=== PATIENT | female | born 1990 | race Hispanic/Latino ===

== ENCOUNTER 2023-10-11 21:19 | Emergency (ER) | payer OTHER, SELFPAY ==
[2023-10-11 21:23] VITALS: BP 124/60
[2023-10-11 21:42] LABS: % Basophils 0.4 % (0-2); % Eosinophils 0.4 % (0-6); % Immature Granulocytes 0.2 % (0-0.5); % Lymphocytes 19.7 % (20.5-51.1); % Monocytes 4.6 % (1.7-9.3); % Neutrophils 74.7 % (42.2-75.2); Absolute Lymphocytes 1.9 10^3/uL (1.2-3.4); Absolute Monocytes 0.4 10^3/uL (0.1-0.6); Absolute Neutrophils 7.1 10^3/uL (1.4-6.5); Hematocrit 38.3 % (37.0-47.0); Mean Corp Hgb Conc. 33.9 g/dL (33.0-37.0); Mean Corpuscular Hgb 28.6 pg (27.0-31.0); Mean Corpuscular Volume 84.4 fL (81.0-99.0); Mean Platelet Volume 9.2 fL (7.4-10.4); Nucleated Red Blood Cells % 0 %; Platelet Count 236 10^3/uL (130-400); Red Blood Cell Count 4.54 10^6/uL (4.20-5.40); White Blood Cell Count 9.5 10^3/uL (4.8-10.8)
[2023-10-11 21:44] LABS: Urine Albumin Trace (Neg - Trace); Urine Bilirubin 1+ (Negative); Urine Character Slightly Cloudy (Clear); Urine Color Yellow; Urine Glucose Negative (Negative); Urine Ketone 3+ (Negative); Urine Leukocyte 2+ (Negative); Urine Nitrite Negative (Negative); Urine Occult Blood 1+ (Negative); Urine Specific Gravity 1.025 (<1.030); Urine Urobilinogen 1+ (Neg - 1+)
[2023-10-11 21:53] LABS: HCG, Serum Qualitative Screen Negative
[2023-10-11 21:58] LABS: ALT (SGPT) 14 U/L (0-35); AST (SGOT) 19 U/L (14-36); Albumin 4.8 g/dl (3.5-5.0); Alkaline Phosphatase 67 U/L (38-126); Blood Urea Nitrogen 23 mg/dl (7-17); Calcium 9.3 mg/dl (8.4-10.2); Carbon Dioxide 28 mmol/L (22-30); Chloride 99 mmol/L (98-107); Glucose 117 mg/dl (70-99); Potassium 3.7 mmol/L (3.5-5.1); Sodium 137 mmol/L (135-145); Total Bilirubin 0.5 mg/dl (0.2-1.3); Total Protein 7.6 g/dl (6.3-8.2); eGFR > 60.00
[2023-10-11 22:02] LABS: Urine Squamous Cell >30 /LPF (Few)
[2023-10-11 22:03] LABS: Urine Bacteria Few (Negative); Urine Red Blood Cell 0-2 /HPF (0-2); Urine White Cell >100 /HPF (0-5)
[2023-10-11 23:57] VITALS: BP 124/63
--- NOTE | 2023-10-12 00:10 | ED.GENMED ---
History of Present Illness
<RAFAEL Ruiz - Last Filed: 10/12/23 05:13>
General
Chief Complaint: Abdominal Pain
Source: patient
Exam Limitations: none
Time Seen by Provider: 10/11/23 23:45
Nursing documentation reviewed up to this point in time: agreed with
Travel History
Have you had any contact with someone who has COVID-19?: No
Do you have any symptoms of coronavirus? Fever > 100 degrees, chills, cough, shortness of breath, sore throat, loss of taste or smell, muscle aches, or headache?: No
History of Present Illness
History of Present Illness:
This is a 32 year old female who presents to the ED of back pain x 5 days. Pt states she has pain on both sides of her lower back that radiates into her abdomen. Her pain has been worsening over the last couple of days. has also had associated
nausea, dysuria, and chills. She thinks she also had 1 episode of hematuria 3 days ago because her urine looked red. She adds that she has also had urinary frequency and difficulty urinating. She denies CRUZ, CP, SOB, or vomiting. Patient has not
taken her temperature. Pt took ibuprofen 7 hours ago but it has not helped with her pain.
Past History
<RAFAEL Ruiz - Last Filed: 10/12/23 05:13>
Past History
ED Past Medical History: None
ED Past Surgical History: Appendectomy and
Social History
Tobacco: Non-smoker
Alcohol: None
Drug: None
Review of Systems
<RAFAEL Ruiz - Last Filed: 10/12/23 05:13>
Review of Systems
Allergies reviewed?: Yes
All Other Systems: ROS reviewed and negative except as documented in HPI and ROS
Constitutional: Reports chills
EENT: Reports no symptoms
Respiratory: Reports no symptoms; Denies trouble breathing
Cardiac: Reports no symptoms; Denies chest pain
ABD/GI: Reports abdominal pain and nausea; Denies vomiting
: Reports dysuria, frequency, flank pain, difficulty voiding and bleeding
Musculoskeletal: Reports no symptoms
Skin: Reports no symptoms
Neurological: Reports no symptoms; Denies headache
Psychiatric: Reports no symptoms
Phy Exam
<RAFAEL Ruiz - Last Filed: 10/12/23 05:13>
General Physical Exam
General Presentation: no apparent distress
General age: appears stated age
General Skin: warm and dry
General Habitus: normal
General Mental: alert
General Hydration: appears well hydrated
ENT Exam
ENT Exam: pharynx normal, normocephalic and swallowing well
Cardiovascular Exam
Cardiovascular Exam: regular rate/rhythm, no edema, no murmur and normal peripheral pulses
Pulmonary Exam
Pulmonary Exam: lungs clear, no respiratory distress, no wheezing and no cough
Gastrointestinal Exam
Gastrointestinal Exam: normal bowel sounds, soft, non distended, cva tenderness (mild), tender (b/l flank pain radiating to abdomen) and other (no guarding or rigidity)
Neurological Exam
Neurological Exam: alert and oriented x3
Musculoskeletal Exam
Musculoskeletal Exam: full ROM and no edema
Skin Exam
Skin Exam: normal color and warm/dry
Psychiatric Exam
Psychiatric Exam: normal mood/affect
Course
<ST SaraKY - Last Filed: 10/12/23 05:13>
Orders/Labs/Results
Orders:
Orders
10/11/23 21:27
Test Result ONCE
10/11/23 21:35
CMP [Comprehensive Metabolic Panel] Urgent
Complete Blood Count/With Diff Urgent
HCG, Serum Qualitative Screen Urgent
Urinalysis Urgent
Date Specimen was Collected: 10/11/23
Time Specimen was Collected: :
Urine Microscopic Urgent
Date Specimen was Collected: 10/11/23
Time Specimen was Collected: :
10/12/23 01:07
Ondansetron Injectable [Zofran] 4 mg IV NOW STA
Sulfamethox./Trimethoprim Ds [Bactrim Ds 800 mg/160 mg] 1 tablet PO NOW STA
10/12/23 01:16
Ondansetron Orally Disint [Zofran Odt (Orally Disintegrating)] 4 mg .ROUTE .STK-MED ONE
10/12/23 01:20
Ondansetron Orally Disint [Zofran Odt (Orally Disintegrating)] 4 mg PO NOW STA
Abnormal Lab Results
10/11/23
21:35
Absolute Neuts (auto) 7.1 H 10^3/uL
(1.4-6.5)
Lymphocytes % 19.7 L %
(20.5-51.1)
BUN 23 H mg/dl
(7-17)
Glucose 117 H mg/dl
(70-99)
Urine Ketones 3+ A
(Negative)
Urine Occult Blood 1+ A
(Negative)
Urine Bilirubin 1+ A
(Negative)
Ur Leukocyte Esterase 2+ A
(Negative)
Urine WBC >100 A /HPF
(0-5)
Urine Bacteria Few A
(Negative)
10/11/23 21:35
10/11/23 21:35
Vital Signs
Initial and Last Documented VS:
Initial Vital Signs
Temp Pulse Resp BP Pulse Ox
98 F 78 18 124/60 100
10/11/23 21:23 10/11/23 21:23 10/11/23 21:23 10/11/23 21:23 10/11/23 21:23
Last Documented Vital Signs
Temp Pulse Resp BP Pulse Ox
98 F 57 16 124/63 99
10/11/23 21:23 10/11/23 23:57 10/11/23 23:57 10/11/23 23:57 10/11/23 23:57
<Prosper Pino, DO - Last Filed: 10/12/23 05:57>
Orders/Labs/Results
Orders:
Orders
10/11/23 21:27
Test Result ONCE
10/11/23 21:35
CMP [Comprehensive Metabolic Panel] Urgent
Complete Blood Count/With Diff Urgent
HCG, Serum Qualitative Screen Urgent
Urinalysis Urgent
Date Specimen was Collected: 10/11/23
Time Specimen was Collected: 21:27
Urine Microscopic Urgent
Date Specimen was Collected: 10/11/23
Time Specimen was Collected: 21:27
10/12/23 01:07
Ondansetron Injectable [Zofran] 4 mg IV NOW STA
Sulfamethox./Trimethoprim Ds [Bactrim Ds 800 mg/160 mg] 1 tablet PO NOW STA
10/12/23 01:16
Ondansetron Orally Disint [Zofran Odt (Orally Disintegrating)] 4 mg .ROUTE .STK-MED ONE
10/12/23 01:20
Ondansetron Orally Disint [Zofran Odt (Orally Disintegrating)] 4 mg PO NOW STA
Abnormal Lab Results
10/11/23
21:35
Absolute Neuts (auto) 7.1 H 10^3/uL
(1.4-6.5)
Lymphocytes % 19.7 L %
(20.5-51.1)
BUN 23 H mg/dl
(7-17)
Glucose 117 H mg/dl
(70-99)
Urine Ketones 3+ A
(Negative)
Urine Occult Blood 1+ A
(Negative)
Urine Bilirubin 1+ A
(Negative)
Ur Leukocyte Esterase 2+ A
(Negative)
Urine WBC >100 A /HPF
(0-5)
Urine Bacteria Few A
(Negative)
10/11/23 21:35
10/11/23 21:35
Vital Signs
Initial and Last Documented VS:
Initial Vital Signs
Temp Pulse Resp BP Pulse Ox
98 F 78 18 124/60 100
10/11/23 21:23 10/11/23 21:23 10/11/23 21:23 10/11/23 21:23 10/11/23 21:23
Last Documented Vital Signs
Temp Pulse Resp BP Pulse Ox
98 F 57 16 124/63 99
10/11/23 21:23 10/11/23 23:57 10/11/23 23:57 10/11/23 23:57 10/11/23 23:57
<Prosepr Pino DO - Last Filed: 10/12/23 05:57>
MDM/Problems Addressed
MDM/Problems Addressed:
Urinary tract infection
<RAFAEL Ruiz - Last Filed: 10/12/23 05:13>
*Critical Care Note
Total Time (30-74mins, 75-104mins- exclusive of procedures): Not Applicable
<Prosper Pino DO - Last Filed: 10/12/23 05:57>
*Pulse Oximetry
Patient hypoxic: no
*Critical Care Note
Total Time (30-74mins, 75-104mins- exclusive of procedures): Not Applicable
Data Reviewed
Source: patient
Further Testing Considered But Not Given:
Considered imaging but abdomen soft and no focal tenderness. Suspect UTI
ED Attending Note
<RAFAEL Ruiz - Last Filed: 10/12/23 05:13>
-
Portions of this chart may have been created with voice recognition software.� Occasional wrong word or��sound alike� substitutions may have occurred due to the inherent limitations of voice recognition software.
<Prosper Pino, - Last Filed: 10/12/23 05:57>
ED Attending Note
Patient seen and examined by attending physician: Yes
I performed the substantive portion of visit, reviewed & personally made and approve the management plan that is documented in note by myself or CHARLENE.: Yes
ED Attending Note:
32-year-old female presents with complaint of 'I have a urinary tract infection'. 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 Patient complains of dysuria, urinary frequency and lower abdominal discomfort. She also has low back pain. Patient does
report low-grade fever. No vomiting. No rash. Exam: Question mild CVA tenderness, mild suprapubic tenderness, right lower quadrant nontender. No respiratory distress. Assessment and plan: Suspect UTI. Do not suspect solomon pyelonephritis
despite exam. Afebrile. Normal. Do not feel patient needs CT imaging. Treat with antibiotics and outpatient follow-up
Discharge Plan
Departure
Patient Disposition: Home (Routine Discharge)
Date of Disposition: 10/12/23
Time of Disposition: 01:07
Patient with high blood pressure during this ER visit?: No
Condition: Good
Covid-19: Not Applicable
Discharge Problem:
UTI (urinary tract infection)
Instructions: Urinary Tract Infection, Adult (DC)
Prescriptions:
New
sulfamethoxazole-trimethoprim [Bactrim DS] 800-160 mg tablet
1 tab PO BID Qty: 14 0RF
ondansetron 4 mg tablet,disintegrating
4 mg PO TIDPRN PRN (Reason: nausea/vomiting) Qty: 10 0RF
No Action
Vitamin Tablet
1 tab PO DAILY
cephalexin 500 mg capsule
500 mg PO QID Qty: 28 0RF
sulfamethoxazole-trimethoprim [Bactrim DS] 800-160 mg tablet
1 tab PO BID Qty: 10 0RF
Referrals:
UNKNOWN - PT DOES,NOT KNOW [Family Provider] -
Activity Restrictions/Additional Instructions:
Spelter antibi�ticos seg�n las indicaciones, tylenol seg�n sea necesario para el dolor y Zofran para las n�useas. Mant�ngase hidratado con agua y l�quidos jessica. Si los s�ntomas persisten o no parecen mejorar, consulte con sun m�dico de atenci�n
primaria. Si presenta fiebre trini, n�useas o v�mitos incontrolables, o steffanie nueva o pus en la orina, regrese al Departamento de Emergencias de inmediato.
Interventions
Interventions:
*Risk Screen - Suicide Last Done: 10/11/23 21:23
*General Assessment Last Done: 10/11/23 23:57
*Neglect/Abuse Screening Last Done: 10/11/23 21:23
ED- Fall Risk Assessment Last Done: 10/11/23 23:57
*ED COVID-19 Vaccine History Last Done: 10/11/23 23:57
*Nursing Disposition Last Done: 10/12/23 01:28
BO-Nzidvf-Wywamjceyu Assessment Last Done: 10/11/23 23:57
Discharge Date and Time
Discharge Date/Time: 10/12/23 01:28
Print Language: HEBREW
[2023-10-12] MEDS: ZOFRAN ODT (ORALLY DISINTEGRATING) 4 MG PO (01:20)
[2023-10-12] MEDS: BACTRIM DS 800 MG/160 MG 1 TABLET PO (01:20)
== END 2023-10-12 01:28 | disposition home or self-care (01) ==
LOC: EMR 21:19
PROVIDERS: Emergency Medicine; EMERGENCY PHYSICIAN Emergency Medicine
DX: N39.0 Urinary tract infection, site not specified (principal)
CPT/HCPCS: 99283; 80053; 81003; 81015; 84703; 85025